=== PATIENT | male | born 1985 | race Hispanic/Latino ===

== ENCOUNTER 2020-07-27 00:37 | Emergency (ER) | payer OTHER ==
[2020-07-27] MEDS ORDERED: ALBUTEROL INHALER 90MCG/INH IH ONE (02:23)
[2020-07-27] MEDS ORDERED: ACETAMINOPHEN EXTRA STRENGTH 500 MG TABLET ONE (02:30)
== END 2020-07-27 03:04 | disposition home or self-care (01) ==
LOC: EDH 00:37
DX: R06.00 Dyspnea, unspecified (principal); R07.89 Other chest pain; F14.10 Cocaine abuse, uncomplicated; Z72.0 Tobacco use; Z20.828 Contact with and (suspected) exposure to other viral communicable diseases
CPT/HCPCS: 71046; 87426; 87804 ×2; 93005; 99285; U0003